=== PATIENT | male | born 1940 | race Caucasian/White ===

== ENCOUNTER 2018-02-11 10:11 | Inpatient (IN) | payer MEDICARE, BC ==
[~2018-02-11] VITALS: Ht 180.3 cm; Wt 84.0 kg
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
--- NOTE | ~2018-02-11 | PN ---
PATIENT:RIKKI SUTTON MEDICAL RECORD: [id number] LOCATION:DIP[facility]113 ADMISSION DATE: 02/11/18 PROGRESS NOTE DATE OF SERVICE: 03/03/2018 SUBJECTIVE: The patient's case was discussed with staff. He has no new complaint. OBJECTIVE: The patient is in good behavioral control with limited insight about his condition. He does tolerate his medicines well. ASSESSMENT: No change in diagnoses. PLAN: The patient will be transitioned out of the hospital today. His long-term prognosis is guarded. Supportive and educational interventions were made. TRANSINT:[id number] Voice Confirmation ID: [id number] DOCUMENT ID: [id number] TAMIKO VALENZUELA MD at 1012 CC: [id number] DICTATION DATE: 03/03/18 1350 CLASSROOM TECHNOLOGY COACH: 03/03/18 1506 DIS IN 03/03/18 [place] [address] [place] [address]
--- NOTE | ~2018-02-11 | PN ---
PATIENT:RIKKI SUTTON MEDICAL RECORD: [id number] LOCATION:[facility]113 ADMISSION DATE: 02/11/18 PROGRESS NOTE DATE OF SERVICE: 02/13/2018 SUBJECTIVE: The patient's case was discussed with staff. He has no new complaint. OBJECTIVE: The patient is eating and sleeping reasonably well. He is severely impaired cognitively, but appears to be settling into a routine and is interacting with staff and other patients and is not asking to go home to be with his . He clearly is going to respond very nicely to structure, routine, and environment and is not going to require a great deal of medication to assist with that adaptation or I could say at least so far he has not. ASSESSMENT: No change in diagnoses. PLAN: The patient will be maintained on current medicines. Brief supportive and educational interventions were made. [facility] prognosis is guarded. TRANSINT:[id number] Voice Confirmation ID: [id number] DOCUMENT ID: [id number] TAMIKO VALENZUELA MD at 1417 CC: [id number] DICTATION DATE: 02/13/18 1048 SHOPPER'S AIDE: 02/13/18 1222 ADM IN [place] [address] [place] [address]
--- NOTE | ~2018-02-11 | DS ---
PATIENT:RIKKI SUTTON :38 MEDICAL RECORD: [id number] DISCHARGE SUMMARY ADMISSION DATE: 02/11/18 DISCHARGE DATE: 03/03/18 IDENTIFYING DATA: The patient is 77 years old and he was admitted to the hospital on a voluntary basis. The patient had been brought to the Emergency Room by his son. The patient's primary care doctor is Dr. Conti. Dr. Conti felt that the patient was not in a safe situation and was concerned about the patient's agitation. The patient has been confused and was showing signs of dementia along with increasing signs of agitation towards others and in particular his . The patient denied all of this and felt that it was some sort of big misunderstanding and was really quite confused about what was going on. The patient had recently been tested by Dr. Nataly Jeffrey and had scored in the severe range of cognitive impairment and this finding was consistent with my bedside exam. HOSPITAL COURSE: The patient was admitted to the hospital and treated with both mood stabilizing and memory enhancing medications. He showed significant improvement in his behaviors and level of agitation, but obviously no real change in his underlying level of impairment cognitively. He subsequently was transitioned to a long-term care setting and was discharged out of the hospital. DISCHARGE DIAGNOSES: AXIS I: Senile dementia of the Alzheimer's type with behavioral disturbances. AXIS II: None. AXIS III: None. AXIS IV: Moderate stressors. AXIS V: Global assessment of functioning is 35. PLAN: At the time of discharge, the patient was in good behavioral control with limited insight about his condition. He was tolerating his medications well. His long-term prognosis is guarded. Brief supportive and educational interventions were made. TRANSINT:[id number] Voice Confirmation ID: [id number] DOCUMENT ID: [id number] TAMIKO VALENZUELA MD at 1354 CC: [id number] DICTATION DATE: 03/10/181707 GENERAL FARMER: 03/10/181718 DIS IN 03/03/18 [place] [id number]
--- NOTE | ~2018-02-11 | PN ---
PATIENT:RIKKI SUTTON MEDICAL RECORD: [id number] LOCATION:[facility] ADMISSION DATE: 02/11/18 PROGRESS NOTE DATE OF SERVICE: 02/15/2018 SUBJECTIVE: The patient's case was discussed with staff. He has no new complaint. OBJECTIVE: The patient is in good behavioral control with limited insight about his condition. He does tolerate his medicines well. ASSESSMENT: No change in diagnoses. PLAN: The patient is severely impaired cognitively, but has not been agitated in any serious way. I think he is appropriate to be transitioned out of the hospital soon if this level of improvement is maintained. TRANSINT:[id number] Voice Confirmation ID: [id number] DOCUMENT ID: [id number] TAMIKO VALENZUELA MD at 1456 CC: [id number] DICTATION DATE: 02/15/18 1446 FIBREGLASS GUN HAND: 02/15/18 1510 ADM IN [place] [id number] [place] [address]
--- NOTE | ~2018-02-11 | PN ---
PATIENT:RIKKI SUTTON MEDICAL RECORD: [id number] LOCATION:[facility] ADMISSION DATE: 02/11/18 PROGRESS NOTE DATE OF SERVICE: 02/17/2018 SUBJECTIVE: The patient's case was discussed with staff. He has no new complaint. OBJECTIVE: The patient is in good behavioral control with limited insight about his condition. He has not been aggressive. ASSESSMENT: No change in diagnoses. PLAN: I anticipate the patient can be transitioned out of the hospital soon. As already documented, I think that the particular assisted living center he is going to is not secure enough to meet his needs, but it certainly does not rise to the level of making any kind of actionable report on. TRANSINT:[id number] Voice Confirmation ID: [id number] DOCUMENT ID: [id number] TAMIKO VALENZUELA MD at 1224 CC: [id number] DICTATION DATE: 02/17/18 1050 PAI GOW MANAGER: 02/17/18 1210 ADM IN [place] [address] [place] [address]
--- NOTE | ~2018-02-11 | PN ---
PATIENT:RIKKI SUTTON MEDICAL RECORD: [id number] LOCATION:[facility] ADMISSION DATE: 02/11/18 PROGRESS NOTE DATE OF SERVICE: 03/01/2018 SUBJECTIVE: The patient's case was discussed with staff. He has no new complaint. OBJECTIVE: The patient is in good behavioral control with limited insight about his condition. He generally tolerates his medicines well. ASSESSMENT: No change in diagnoses. PLAN: Current medicines have been reviewed and will be maintained. Long-term prognosis is guarded. I anticipate he can be transitioned out of the hospital as soon as appropriate placement can be arranged. TRANSINT:[id number] Voice Confirmation ID: [id number] DOCUMENT ID: [id number] TAMIKO VALENZUELA MD at 1501 CC: [id number] DICTATION DATE: 03/01/18 1630 VICTIMS ADVOCATE CLERK/SPECIALIST: 03/01/18 1852 ADM IN [facility] [address] [place] [address]
--- NOTE | ~2018-02-11 | PN ---
PATIENT:RIKKI SUTTON MEDICAL RECORD: [id number] LOCATION:[facility]113 ADMISSION DATE: 02/11/18 PROGRESS NOTE DATE OF SERVICE: 03/02/2018 SUBJECTIVE: The patient's case was discussed with staff. He has no new complaint. OBJECTIVE: The patient denies intent to harm himself or others. He generally tolerates his medicines well. Eye contact is fair. ASSESSMENT: No change in diagnoses. PLAN: Brief supportive and educational interventions were made. [facility] prognosis is guarded. I anticipate he can be transitioned out of the hospital tomorrow if this level of improvement is maintained. Followup will be with his primary care physician. TRANSINT:[id number] Voice Confirmation ID: [id number] DOCUMENT ID: [id number] TAMIKO VALENZUELA MD at 1319 CC: [id number] DICTATION DATE: 03/02/18 1518 HISTOLOGY AIDE: 03/02/18 1555 ADM IN [place] [id number] [place] [address]
--- NOTE | ~2018-02-11 | PN ---
PATIENT:RIKKI SUTTON MEDICAL RECORD: [id number] LOCATION:[facility] ADMISSION DATE: 02/11/18 PROGRESS NOTE DATE OF SERVICE: 02/18/2018 SUBJECTIVE: The patient's case was discussed with staff. He has no new complaint. OBJECTIVE: The patient denies intent to harm himself or others. He generally tolerates his medicines well. Eye contact is fair. ASSESSMENT: No change in diagnoses. PLAN: Supportive and educational interventions were made. Long-term prognosis is guarded. I anticipate the patient can be transitioned out of the hospital soon if this level of improvement is maintained. His family is planning to move him into [facility]. I have increased the dose of his Aricept to 10 mg at bedtime since he has tolerated the initial use of the medicine well. TRANSINT:[id number] Voice Confirmation ID: [id number] DOCUMENT ID: [id number] TAMIKO VALENZUELA MD at 1212 CC: [id number] DICTATION DATE: 02/18/18 1303 MICROSTRATEGY ARCHITECT: 02/18/18 1321 ADM IN [facility] [address] [place] [address]
--- NOTE | ~2018-02-11 | PN ---
PATIENT:RIKKI SUTTON MEDICAL RECORD: [id number] LOCATION:DPIAK [facility]113 ADMISSION DATE: 02/11/18 PROGRESS NOTE DATE OF SERVICE: 02/22/2018 SUBJECTIVE: The patient's case was discussed with staff. He has no new complaint. OBJECTIVE: The patient denies intent to harm himself or others. He tolerates his medicines well. He is eating reasonably well. ASSESSMENT: No change in diagnoses. PLAN: Supportive and educational interventions were made. Skilled Nursing prognosis is guarded. TRANSINT:[id number] Voice Confirmation ID: [id number] DOCUMENT ID: [id number] TAMIKO VALENZUELA MD at 1452 CC: [id number] DICTATION DATE: 02/22/18 1508 X RAY CONSULTANT: 02/22/18 1537 ADM IN [place] [id number] [place] [address]
--- NOTE | ~2018-02-11 | PN ---
PATIENT:RIKKI SUTTON MEDICAL RECORD: [id number] LOCATION:[facility] ADMISSION DATE: 02/11/18 PROGRESS NOTE DATE OF SERVICE: 02/20/2018 SUBJECTIVE: The patient's case was discussed with staff. He has no new complaint. OBJECTIVE: The patient is in good behavioral control with limited insight about his condition. He tolerates his medicines well. ASSESSMENT: No change in diagnoses. PLAN: The patient has shown significant improvement. I anticipate he can be transitioned out of the hospital soon. TRANSINT:[id number] Voice Confirmation ID: [id number] DOCUMENT ID: [id number] TAMIKO VALENZUELA MD at 1445 CC: [id number] DICTATION DATE: 02/20/18 1006 OTOLARYNGOLOGY REP: 02/20/18 1202 ADM IN [place] [address] [place] [address]
--- NOTE | ~2018-02-11 | PN ---
PATIENT:RIKKI SUTTON MEDICAL RECORD: [id number] LOCATION:TonyJEN [facility]u113 ADMISSION DATE: 02/11/18 PROGRESS NOTE DATE OF SERVICE: 02/19/2018 SUBJECTIVE: The patient's case was discussed with staff. He has no new complaint. OBJECTIVE: The patient denies intent to harm himself or others. He does tolerate his medicines well. ASSESSMENT: No change in diagnoses. PLAN: The patient will be transitioned out of the hospital soon. He is going to live at [facility] with his 92-year-old . His long-term prognosis is guarded. TRANSINT:[id number] Voice Confirmation ID: [id number] DOCUMENT ID: [id number] TAMIKO VALENZUELA MD at 0949 CC: [id number] DICTATION DATE: 02/19/18 1238 ACID PUMPER: 02/19/18 1247 ADM IN [facility] [address] [place] [address]
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
--- NOTE | ~2018-02-11 | PN ---
PATIENT:RIKKI SUTTON MEDICAL RECORD: [id number] LOCATION:DIP[facility] ADMISSION DATE: 02/11/18 PROGRESS NOTE DATE OF SERVICE: 02/24/2018 SUBJECTIVE: The patient's case was discussed with staff. He has no new complaint. OBJECTIVE: The patient is in good behavioral control with limited insight about his condition. He tolerates his medicines well. ASSESSMENT: No change in diagnoses. PLAN: The patient is in need of 47-zhdq-g-day supervision. His long-term prognosis is guarded. TRANSINT:[id number] Voice Confirmation ID: [id number] DOCUMENT ID: [id number] TAMIKO VALENZUELA MD at 1438 CC: [id number] DICTATION DATE: 02/24/18 1406 STAKE DRIVER: 02/24/18 1425 ADM IN [place] [address] [place] [address]
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
[2018-02-11 10:48] LABS: BASOPHILS 0.9 % (0-2); EOSINOPHILS 1.8 % (0-7); HEMATOCRIT 42.2 % (42.0-54.0); HEMOGLOBIN 14.2 g/dL (13.5-17.5); IMMATURE GRANULOCYTES 0.3 % (0-5); LYMPHOCYTES 20.6 % (15-50); MCHC 33.6 g/dL (31.0-37.0); MEAN PLATELET VOLUME 9.9 fL (7.4-10.4); MONOCYTES 7.2 % (2-11); NEUTROPHILS 69.2 % (40-80); PLATELET COUNT 162 10x3/uL (130-400); RBC 4.44 10x6/uL (4.20-6.10); RDW 13.6 % (11.5-14.5); WBC 6.6 10x3/uL (4.8-10.8)
[2018-02-11 11:06] LABS: ALBUMIN 3.3 g/dL (3.4-5.0); ANION GAP 13.6 mmol/L (8-16); BILIRUBIN - TOTAL 0.54 mg/dL (0.2-1.3); CARBON DIOXIDE 25.6 mmol/L (21.0-32.0); CREATININE - SERUM 1.3 mg/dL (0.6-1.3); MAGNESIUM - SERUM 2.1 mg/dL (1.8-2.4); POTASSIUM - SERUM 4.2 mmol/L (3.5-5.1); PROTEIN - SERUM 6.8 g/dL (6.4-8.2)
[2018-02-11 11:35] LABS: UDS - AMPHET NEGATIVE QUAL (NEGATIVE); UDS - BARB NEGATIVE QUAL (NEGATIVE); UDS - BENZO NEGATIVE QUAL (NEGATIVE); UDS - COCAINE NEGATIVE QUAL (NEGATIVE); UDS - OPIATE NEGATIVE QUAL (NEGATIVE); UDS - PCP NEGATIVE QUAL (NEGATIVE); UDS - THC NEGATIVE QUAL (NEGATIVE)
[2018-02-11 11:48] LABS: APPEARANCE CLEAR (CLEAR); BILIRUBIN NEGATIVE (NEGATIVE); COLOR YELLOW (YELLOW); GLUCOSE NEGATIVE (NEGATIVE); KETONE NEGATIVE (NEGATIVE); NITRITE NEGATIVE (NEGATIVE); PROTEIN NEGATIVE (NEGATIVE); SPECIFIC GRAVITY 1.025 (1.005-1.020); UROBILINOGEN NORMAL (NORMAL)
[2018-02-11 11:50] LABS: BACTERIA FEW /hpf (NONE SEEN); EPITHELIAL CELLS OCC /hpf (0-5); MUCUS >1+ /lpf (NONE SEEN); RED CELLS - URINE 0-5 /hpf (0-5); WHITE CELLS - URINE OCC /hpf (0-5)
[2018-02-11 11:51] LABS: HYALINE CAST 0-5 /lpf (NONE SEEN)
[2018-02-11 12:49] VITALS: BP 176/80; BMI 25.8
[2018-02-11 14:13] VITALS: BMI 25.8
[2018-02-11 15:32] LABS: CHOL - HDL RATIO 3.1 ratio (2.3-4.9); LDL-HDL RATIO 1.9 ratio (1.5-3.5); THYROID STIMULATING HORMONE 1.46 uIU/mL (0.36-3.74)
[2018-02-11 20:07] VITALS: BP 150/71
[2018-02-12 06:15] LABS: RAPID PLASMA REAGIN Non Reactive (Non Reactive); VITAMIN D 25 HYDROXY 12.9 ng/mL (30.0-100.0)
[2018-02-12 08:19] LABS: FOLATE (FOLIC ACID) - SERUM 11.9 ng/mL (>3.0)
[2018-02-12 09:18] VITALS: BP 134/61
[2018-02-12 09:38] VITALS: BP 134/61
[2018-02-12 14:16] VITALS: Ht 180.3 cm; Wt 84.0 kg
[2018-02-12 19:43] VITALS: BP 178/71
[2018-02-13 10:42] VITALS: BP 141/78
[2018-02-13 20:16] VITALS: BP 140/70
[2018-02-14 08:27] VITALS: BP 151/80
[2018-02-14 19:26] VITALS: BP 151/61
[2018-02-15 07:00] VITALS: BP 121/66
[2018-02-15 19:56] VITALS: BP 134/73
[2018-02-16 07:56] VITALS: BP 138/58
[2018-02-16 19:55] VITALS: BP 144/69
[2018-02-17 09:28] VITALS: BP 135/83
[2018-02-17 19:33] VITALS: BP 117/60
[2018-02-18 08:30] VITALS: BP 145/73
[2018-02-18 21:13] VITALS: BP 113/63
[2018-02-19 08:30] VITALS: BP 141/99
[2018-02-19 20:02] VITALS: BP 142/71
[2018-02-20 08:16] VITALS: BP 140/65
[2018-02-20 10:19] VITALS: BP 140/65
[2018-02-20 19:58] VITALS: BP 143/61
[2018-02-21 07:00] VITALS: BP 143/56
[2018-02-21 20:26] VITALS: BP 138/65
[2018-02-22 07:00] VITALS: BP 147/60
[2018-02-22 19:58] VITALS: BP 151/66
[2018-02-23 10:03] VITALS: BP 122/67
[2018-02-24 00:11] VITALS: BP 128/62
[2018-02-24 08:00] VITALS: BP 108/65
[2018-02-24 20:00] VITALS: BP 122/74
[2018-02-25 09:39] VITALS: BP 138/73
[2018-02-25 22:05] VITALS: BP 124/63
[2018-02-26 10:47] VITALS: BP 140/70
[2018-02-26 21:09] VITALS: BP 110/59
[2018-02-27 11:14] VITALS: BP 138/62
[2018-02-27 19:32] VITALS: BP 125/57
[2018-02-28 07:00] VITALS: BP 111/71
[2018-02-28 19:20] VITALS: BP 140/77
[2018-03-01 07:00] VITALS: BP 124/71
[2018-03-01 20:58] VITALS: BP 108/43
[2018-03-02 10:25] VITALS: BP 129/64
[2018-03-02] MEDS ORDERED: ARICEPT10 MG PO (15:16)
[2018-03-02] MEDS ORDERED: VITAMIN D5000 UNIT PO (15:17)
[2018-03-02] MEDS ORDERED: VITAMIN B-121000 MCG PO (15:17)
[2018-03-02 19:36] VITALS: BP 123/59
[2018-03-03 10:56] VITALS: BP 118/71
== END 2018-03-03 14:39 | disposition home or self-care (01) | DRG 57 ==
LOC: D.ER 10:11 → D.PSYCH 12:15
PROVIDERS: Family Medicine; Psychiatry & Neurology Psychiatry
DX: G30.1 Alzheimer's disease with late onset (principal); F02.81 Dementia in other diseases classified elsewhere, unspecified severity, with behavioral disturbance; E53.8 Deficiency of other specified B group vitamins; E55.9 Vitamin D deficiency, unspecified

== ENCOUNTER 2018-05-10 15:39 | Inpatient (IN) | payer MEDICARE, BC ==
[~2018-05-10] VITALS: Ht 180.3 cm; Wt 81.6 kg
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
--- NOTE | ~2018-05-10 | PN ---
PATIENT:RIKKI SUTTON MEDICAL RECORD: [id number] LOCATION:DIPAK Leone112 ADMISSION DATE: 05/10/18 PROGRESS NOTE DATE OF SERVICE: 05/18/2018 SUBJECTIVE: The patient's case was discussed with staff. He has no new complaint. OBJECTIVE: The patient denies intent to harm himself or others. He generally tolerates his medicines well. Eye contact is poor. ASSESSMENT: No change in diagnoses. PLAN: The patient has no evidence of acute or direct dangerousness. He will be transitioned out of the hospital today. His long-term prognosis is guarded. Follow up will be with his primary care alf physician. TRANSINT:[id number] Voice Confirmation ID: [id number] DOCUMENT ID: [id number] TAMIKO VALENZUELA MD at 1419 CC: [id number] DICTATION DATE: 05/18/18 1437 LEGAL BILLING CLERK: 05/18/18 1546 DIS IN 05/18/18 [place] [address] [place] [address]
--- NOTE | ~2018-05-10 | PN ---
PATIENT:RIKKI SUTTON MEDICAL RECORD: [id number] LOCATION:DIPAK [address]112 ADMISSION DATE: 05/10/18 PROGRESS NOTE DATE OF SERVICE: 05/14/2018 SUBJECTIVE: The patient's case was discussed with staff. He has no new complaint. OBJECTIVE: The patient is in good behavioral control. He has limited insight about his condition. He does tolerate his medicines well. ASSESSMENT: No change in diagnoses. PLAN: Brief supportive and educational interventions were made. I have reviewed the patient's medications and will maintain them as they are. I would anticipate he can be transitioned out of the hospital soon if this level of improvement is maintained. TRANSINT:[id number] Voice Confirmation ID: [id number] DOCUMENT ID: [id number] TAMIKO VALENZUELA MD at 1234 CC: [id number] DICTATION DATE: 05/14/181421 OPTOMETRIST: 05/14/18 1426 ADM IN [facility] [address] [place] [address]
--- NOTE | ~2018-05-10 | PN ---
PATIENT:RIKKI SUTTON MEDICAL RECORD: [id number] LOCATION:[facility] [address] ADMISSION DATE: 05/10/18 PROGRESS NOTE DATE OF SERVICE: 05/12/2018 SUBJECTIVE: The patient's case was discussed with staff. He has no new complaint. OBJECTIVE: The patient denies intent to harm himself or others. He generally tolerates his medicines well. ASSESSMENT: No change in diagnoses. PLAN: Supportive and educational interventions were made. The patient's long-term prognosis is guarded. He has not been aggressive and has no recollection of his previous behaviors. TRANSINT:[id number] Voice Confirmation ID: [id number] DOCUMENT ID: [id number] TAMIKO VALENZUELA MD at 1407 CC: [id number] DICTATION DATE: 05/12/18 1505 HORTICULTURAL AGENT: 05/12/18 1513 ADM IN [place] [id number] [place] [id number]
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
--- NOTE | ~2018-05-10 | PN ---
PATIENT:RIKKI SUTTON MEDICAL RECORD: [id number] LOCATION:[facility] [place] ADMISSION DATE: 05/10/18 PROGRESS NOTE DATE OF SERVICE: 05/16/2018 SUBJECTIVE: The patient's case was discussed with staff. He has no new complaint. OBJECTIVE: The patient denies intent to harm himself or others. He is quite confused, but currently is not showing any aggression. ASSESSMENT: No change in diagnoses. PLAN: Supportive and educational interventions were made. Long-term prognosis is guarded. TRANSINT:[id number] Voice Confirmation ID: [id number] DOCUMENT ID: [id number] TAMIKO VALENZUELA MD at 1351 CC: [id number] DICTATION DATE: 05/16/18 1245 SOCIAL STAFF WORKER: 05/16/181951 ADM IN [place] [address] [place] [address]
--- NOTE | ~2018-05-10 | PN ---
PATIENT:RIKKI SUTTON MEDICAL RECORD: [id number] LOCATION:[facility] [place] ADMISSION DATE: 05/10/18 PROGRESS NOTE DATE OF SERVICE: 05/13/2018 SUBJECTIVE: The patient's case was discussed with staff. He has no new complaint. OBJECTIVE: The patient is in good behavioral control with limited insight about his condition. He tolerates his medicines well. He has not been aggressive today. ASSESSMENT: No change in diagnoses. PLAN: The patient's current medications have been reviewed. They will be maintained. Supportive and educational interventions were made. TRANSINT:[id number] Voice Confirmation ID: [id number] DOCUMENT ID: [id number] TAMIKO VALENZUELA MD at 1341 CC: [id number] DICTATION DATE: 05/13/18 1452 SUBSTATION DESIGNER: 05/13/18 1501 ADM IN [place] [id number] [place] [address]
--- NOTE | ~2018-05-10 | PN ---
PATIENT:RIKKI SUTTON MEDICAL RECORD: [id number] LOCATION:[facility] [place] ADMISSION DATE: 05/10/18 PROGRESS NOTE DATE OF SERVICE: 05/15/2018 SUBJECTIVE: The patient's case was discussed with staff. He has no new complaint. OBJECTIVE: The patient denies intent to harm himself or others. He generally tolerates his medicines well. He is severely confused. ASSESSMENT: No change in diagnoses. PLAN: Brief supportive and educational interventions were made. Long-term prognosis is guarded. TRANSINT:[id number] Voice Confirmation ID: [id number] DOCUMENT ID: [id number] TAMIKO VALENZUELA MD at 1226 CC: [id number] DICTATION DATE: 05/15/18 1244 WOOD CRAFTER: 05/15/18 1248 ADM IN [place] [address] [place] [address]
--- NOTE | ~2018-05-10 | PN ---
PATIENT:RIKKI SUTTON MEDICAL RECORD: [id number] LOCATION:[facility] [address] ADMISSION DATE: 05/10/18 PROGRESS NOTE DATE OF SERVICE: 05/17/2018 SUBJECTIVE: The patient's case was discussed with staff. He has no new complaint. OBJECTIVE: The patient is in good behavioral control with limited insight about his condition. He does tolerate his medicines well. ASSESSMENT: No change in diagnoses. PLAN: Supportive and educational interventions were made. The patient's long-term prognosis is guarded. He has significantly improved and I anticipate he can be returned to the longterm tomorrow. TRANSINT:[id number] Voice Confirmation ID: [id number] DOCUMENT ID: [id number] TAMIKO VALENZUELA MD at 1416 CC: [id number] DICTATION DATE: 05/17/18 1601 WEIGHTS AND MEASURES SEALER: 05/17/18 1640 ADM IN [facility] [address] [place] [id number]
[~2018-05-10 15:39] MED LIST: ARICEPT10 MG PO; VITAMIN B-121000 MCG PO; VITAMIN D5000 UNIT PO
[2018-05-10] MEDS ORDERED: KLONOPIN0.5 MG PO (15:42)
[2018-05-10] MEDS ORDERED: SEROQUEL25 MG PO (15:43)
[2018-05-10 16:44] LABS: BASOPHILS 1.1 % (0-2); EOSINOPHILS 5.7 % (0-7); HEMATOCRIT 44.9 % (42.0-54.0); HEMOGLOBIN 15.2 g/dL (13.5-17.5); IMMATURE GRANULOCYTES 0.5 % (0-5); LYMPHOCYTES 22.2 % (15-50); MCH 32.1 pg (26.0-34.0); MCHC 33.9 g/dL (31.0-37.0); MCV 94.7 fL (80.0-100.0); MEAN PLATELET VOLUME 9.9 fL (7.4-10.4); MONOCYTES 13.6 % (2-11); NEUTROPHILS 56.9 % (40-80); PLATELET COUNT 178 10x3/uL (130-400); RBC 4.74 10x6/uL (4.20-6.10); RDW 13.5 % (11.5-14.5); WBC 7.6 10x3/uL (4.8-10.8)
[2018-05-10 17:01] LABS: APPEARANCE CLEAR (CLEAR); BILIRUBIN NEGATIVE (NEGATIVE); COLOR YELLOW (YELLOW); GLUCOSE NEGATIVE (NEGATIVE); KETONE NEGATIVE (NEGATIVE); NITRITE NEGATIVE (NEGATIVE); PROTEIN NEGATIVE (NEGATIVE); SPECIFIC GRAVITY 1.015 (1.005-1.020); UROBILINOGEN NORMAL (NORMAL)
[2018-05-10 17:41] LABS: ALBUMIN 3.5 g/dL (3.4-5.0); ANION GAP 10.7 mmol/L (8-16); BILIRUBIN - TOTAL 0.33 mg/dL (0.2-1.3); CALCIUM 9.1 mg/dL (8.5-10.1); CARBON DIOXIDE 29.9 mmol/L (21.0-32.0); CHOL - HDL RATIO 3.2 ratio (2.3-4.9); CREATININE - SERUM 1.4 mg/dL (0.6-1.3); LDL-HDL RATIO 1.9 ratio (1.5-3.5); POTASSIUM - SERUM 4.6 mmol/L (3.5-5.1); PROTEIN - SERUM 7.4 g/dL (6.4-8.2); THYROID STIMULATING HORMONE 2.12 uIU/mL (0.36-3.74)
[2018-05-11 02:08] VITALS: BP 112/54
[2018-05-11 06:58] LABS: CHOL - HDL RATIO 2.8 ratio (2.3-4.9); LDL-HDL RATIO 1.6 ratio (1.5-3.5); THYROID STIMULATING HORMONE 1.81 uIU/mL (0.36-3.74)
[2018-05-11 08:00] VITALS: BP 124/83
[2018-05-11 08:07] VITALS: BMI 23.7; BMI 25.2
[2018-05-11 14:06] VITALS: Ht 180.3 cm; Wt 81.6 kg
[2018-05-11 20:46] VITALS: BP 135/72
[2018-05-12 07:53] LABS: RAPID PLASMA REAGIN Non Reactive (Non Reactive)
[2018-05-12 08:19] LABS: FOLATE (FOLIC ACID) - SERUM 10.5 ng/mL (>3.0)
[2018-05-12 09:16] LABS: VITAMIN D 25 HYDROXY 63.2 ng/mL (30.0-100.0)
[2018-05-12 10:28] VITALS: BP 159/89
[2018-05-12 20:27] VITALS: BP 157/87
[2018-05-13 10:09] VITALS: BP 167/90
[2018-05-13 19:38] VITALS: BP 147/84
[2018-05-14 10:41] VITALS: BP 152/85
[2018-05-15 10:15] VITALS: BP 131/68
[2018-05-15 20:00] VITALS: BP 116/52
[2018-05-16 11:02] VITALS: BP 108/74
[2018-05-16 19:47] VITALS: BP 128/63
[2018-05-17 07:00] VITALS: BP 131/75
[2018-05-17] MEDS ORDERED: Aricept PO (16:02)
[2018-05-17] MEDS ORDERED: VITAMIN D5000 UNIT PO (16:03)
[2018-05-17 19:50] VITALS: BP 135/72
[2018-05-18 10:00] VITALS: BP 123/72
== END 2018-05-18 15:45 | disposition home or self-care (01) | DRG 57 ==
LOC: D.ER 15:39 → D.EDHOLD 16:46 → D.PSYCH 16:46
PROVIDERS: Emergency Medicine; Psychiatry & Neurology Psychiatry
DX: G30.1 Alzheimer's disease with late onset (principal); F02.81 Dementia in other diseases classified elsewhere, unspecified severity, with behavioral disturbance; F41.9 Anxiety disorder, unspecified; E53.8 Deficiency of other specified B group vitamins; E55.9 Vitamin D deficiency, unspecified; Z87.891 Personal history of nicotine dependence

== ENCOUNTER 2018-07-21 18:05 | Inpatient (IN) | payer MEDICARE, BC ==
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
--- NOTE | ~2018-07-21 | PN ---
PATIENT:RIKKI SUTTON MEDICAL RECORD: [id number] LOCATION:[facility] [address] ADMISSION DATE: 07/21/18 PROGRESS NOTE DATE OF SERVICE: 08/01/2018 SUBJECTIVE: The patient's case was discussed with staff. He has no new complaint. OBJECTIVE: The patient denies intent to harm himself or others. He generally tolerates his medicines well. He has pretty limited insight about his situation, but he has been in good behavioral control and is quite calm. ASSESSMENT: No change in diagnoses. PLAN: Current medicines have been reviewed and will be maintained. His long-term prognosis is guarded. I anticipate if this level of improvement continues he can be transitioned out of the hospital tomorrow. Although the current medicines will be maintained, I see no reason for him to continue to take this low dose of Klonopin and feel that he will be calm enough to not represent any kind of a problem without the quarter of a mg twice a day that he is currently receiving. TRANSINT:[id number] Voice Confirmation ID: [id number] DOCUMENT ID: [id number] TAMIKO VALENZUELA MD at 1353 CC: [id number] DICTATION DATE: 08/01/18 1132 GROOMING SALON MANAGER: 08/01/18 1151 ADM IN [facility] [address] [place] [address]
--- NOTE | ~2018-07-21 | PN ---
PATIENT:RIKKI SUTTON MEDICAL RECORD: [id number] LOCATION:[facility] [place] ADMISSION DATE: 07/21/18 PROGRESS NOTE DATE OF SERVICE: 08/05/2018 SUBJECTIVE: The patient's case was discussed with staff. He has no new complaint. OBJECTIVE: The patient denies intent to harm himself or others. He generally tolerates his medicines well. He has not been aggressive, and he is sleeping and eating reasonably well. ASSESSMENT: No change in diagnoses. PLAN: The [facility] has decided they cannot manage him. He will be referred to the [facility] for assisted living. TRANSINT:[id number] Voice Confirmation ID: [id number] DOCUMENT ID: [id number] TAMIKO VALENZUELA MD at 1255 CC: [id number] DICTATION DATE: 08/05/18 1235 BRIDGE CREW MEMBER: 08/05/18 1355 ADM IN [facility] [address] [place] [address]
--- NOTE | ~2018-07-21 | PN ---
PATIENT:RIKKI SUTTON MEDICAL RECORD: [id number] LOCATION:[facility] [address] ADMISSION DATE: 07/21/18 PROGRESS NOTE DATE OF SERVICE: 08/09/2018 SUBJECTIVE: The patient's case was discussed with staff. He has no new complaint. OBJECTIVE: The patient denies intent to harm himself or others. He does tolerate his medicines well. He is severely impaired cognitively, but there are no behavior problems. He is going to be transitioned out of the hospital into the [facility] with his today. TRANSINT:[id number] Voice Confirmation ID: [id number] DOCUMENT ID: [id number] TAMIKO VALENZUELA MD at 0943 CC: [id number] DICTATION DATE: 08/09/18 1029 STAGE SETTING PAINTER APPRENTICE: 08/09/18 1050 DIS IN 08/09/18 [place] [address] [place] [address]
--- NOTE | ~2018-07-21 | PN ---
PATIENT:RIKKI SUTTON MEDICAL RECORD: [id number] LOCATION:[facility] [address] ADMISSION DATE: 07/21/18 PROGRESS NOTE DATE OF SERVICE: 07/23/2018 SUBJECTIVE: The patient's case was discussed with staff. He has no new complaint. OBJECTIVE: The patient is in good behavioral control with little or limited insight about his situation. ASSESSMENT: No change in diagnoses. PLAN: Current medicines and therapies have been reviewed. I am going to discontinue the Seroquel. I am concerned that the Seroquel may be making him unsteady on his feet. If I think an antipsychotic medication is needed, I will either use Seroquel or some other equivalent medication, but at night time. I would like to see if his gait is any better with the discontinuation of this medication. TRANSINT:[id number] Voice Confirmation ID: [id number] DOCUMENT ID: [id number] TAMIKO VALENZUELA MD at 1101 CC: [id number] DICTATION DATE: 07/23/18 1436 COIN COLLECTOR: 07/23/18 2100 ADM IN [facility] [address] [place] [address]
--- NOTE | ~2018-07-21 | PN ---
PATIENT:RIKKI SUTTON MEDICAL RECORD: [id number] LOCATION:[facility] [place] ADMISSION DATE: 07/21/18 PROGRESS NOTE DATE OF SERVICE: 08/02/2018 SUBJECTIVE: The patient's case was discussed with staff. He has no new complaint. OBJECTIVE: The patient is in good behavioral control with limited insight about his condition. He generally tolerates his medicines well. He is often difficult to redirect, but is not openly aggressive or hostile. ASSESSMENT: No change in diagnoses. PLAN: The patient will be transitioned back to the intermediate today. Followup will be with his primary care physician. TRANSINT:[id number] Voice Confirmation ID: [id number] DOCUMENT ID: [id number] TAMIKO VALENZUELA MD at 0945 CC: [id number] DICTATION DATE: 08/02/18 1357 LICENSED PHYSICAL THERAPY ASSISTANT: 08/02/18 1437 ADM IN [place] [address] [place] [address]
--- NOTE | ~2018-07-21 | PN ---
PATIENT:RIKKI SUTTON MEDICAL RECORD: [id number] LOCATION:[facility] [place] ADMISSION DATE: 07/21/18 PROGRESS NOTE DATE OF SERVICE: 07/28/2018 SUBJECTIVE: The patient's case was discussed with staff. He has no new complaint. OBJECTIVE: The patient is confused and poorly oriented, but he has not been aggressive. ASSESSMENT: No change in diagnoses. PLAN: The patient was given a slightly lower dose of Klonopin yesterday. I do not see that it has had any significant effect on his behavior so far. His prognosis is guarded. He is taking a reasonable dose of Aricept. TRANSINT:[id number] Voice Confirmation ID: [id number] DOCUMENT ID: [id number] TAMIKO VALENZUELA MD at 0858 CC: [id number] DICTATION DATE: 07/28/18 1134 LOG YARD DERRICK OPERATOR: 07/28/18 1303 ADM IN [place] [id number] [place] [id number]
--- NOTE | ~2018-07-21 | PN ---
PATIENT:RIKKI SUTTON MEDICAL RECORD: [id number] LOCATION:[facility] [place] ADMISSION DATE: 07/21/18 PROGRESS NOTE DATE OF SERVICE: 07/26/2018 SUBJECTIVE: The patient's case was discussed with staff. He has no new complaint. OBJECTIVE: The patient is disorganized with limited insight about his condition. He generally tolerates his medicines reasonably well. He is eating well, but has this delusion that one of the other patients is his . He keeps calling her by his 's name and wants to embrace her and becomes angry when he is prevented from doing so. ASSESSMENT: No change in diagnoses. PLAN: The patient will be given a low dose of an antipsychotic medication, Trilafon, to assist with his thought disorganization. His long-term prognosis is guarded. Both supportive and educational interventions were made. TRANSINT:[id number] Voice Confirmation ID: [id number] DOCUMENT ID: [id number] TAMIKO VALENZUELA MD at 1443 CC: [id number] DICTATION DATE: 07/26/18 1604 RAPIER INSERTION LOOM FIXER: 07/26/18 1826 ADM IN [place] [address] [place] [address]
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
--- NOTE | ~2018-07-21 | PN ---
PATIENT:RIKKI SUTTON MEDICAL RECORD: [id number] LOCATION:[facility] [address] ADMISSION DATE: 07/21/18 PROGRESS NOTE DATE OF SERVICE: 07/29/2018 SUBJECTIVE: The patient's case was discussed with staff. He has no new complaint. OBJECTIVE: The patient denies intent to harm himself or others. He has been relatively calm. ASSESSMENT: No change in diagnoses. PLAN: The patient's Klonopin is going to be tapered slightly. I think his long-term prognosis is guarded. Both supportive and educational interventions were made. TRANSINT:[id number] Voice Confirmation ID: [id number] DOCUMENT ID: [id number] TAMIKO VALENZUELA MD at 1217 CC: [id number] DICTATION DATE: 07/29/18 1135 LAUNDRY TECH: 07/29/18 1324 ADM IN [facility] [address] [place] [id number]
--- NOTE | ~2018-07-21 | PN ---
PATIENT:RIKKI SUTTON MEDICAL RECORD: [id number] LOCATION:[facility] [place] ADMISSION DATE: 07/21/18 PROGRESS NOTE DATE OF SERVICE: 08/07/2018 SUBJECTIVE: The patient's case was discussed with staff. He has no new complaint. OBJECTIVE: The patient is in good behavioral control with limited insight about his condition. He generally tolerates his medicines well. ASSESSMENT: No change in diagnoses. PLAN: Current medicines and therapies have been reviewed and will be maintained. Long-term prognosis is guarded. I anticipate he can be transitioned out of the hospital Thursday if this level of improvement continues. TRANSINT:[id number] Voice Confirmation ID: [id number] DOCUMENT ID: [id number] TAMIKO VALENZUELA MD at 1130 CC: [id number] DICTATION DATE: 08/07/18 1001 STAFF AIR DEFENSE OFFICER: 08/07/18 1152 ADM IN [facility] [address] [place] [address]
--- NOTE | ~2018-07-21 | PN ---
PATIENT:RIKKI SUTTON MEDICAL RECORD: [id number] LOCATION:[facility] [place] ADMISSION DATE: 07/21/18 PROGRESS NOTE DATE OF SERVICE: 08/04/2018 SUBJECTIVE: The patient's case was discussed with staff. He has no new complaint. OBJECTIVE: The patient denies intent to harm himself or others. He is severely impaired cognitively. ASSESSMENT: No change in diagnoses. PLAN: Current medicines have been reviewed. His long-term prognosis is guarded. Supportive and educational interventions were made. I anticipate he could be transitioned back to the assisted living center soon. TRANSINT:[id number] Voice Confirmation ID: [id number] DOCUMENT ID: [id number] TAMIKO VALENZUELA MD at 1229 CC: [id number] DICTATION DATE: 08/04/18917 LPN RN: 08/04/18 1137 ADM IN [place] [address] [place] [id number]
--- NOTE | ~2018-07-21 | PN ---
PATIENT:RIKKI SUTTON MEDICAL RECORD: [id number] LOCATION:[facility] [place] ADMISSION DATE: 07/21/18 PROGRESS NOTE DATE OF SERVICE: 08/06/2018 SUBJECTIVE: The patient's case was discussed with staff. He has no new complaint. OBJECTIVE: The patient denies intent to harm himself or others. He is only partially oriented. He has limited insight about his situation. ASSESSMENT: No change in diagnoses. PLAN: Brief supportive and educational interventions were made. Long-term prognosis is guarded. I anticipate the patient can be transitioned out of the hospital soon. Placement is being considered at the [facility] [place]. TRANSINT:[id number] Voice Confirmation ID: [id number] DOCUMENT ID: [id number] TAMIKO VALENZUELA MD at 0846 CC: [id number] DICTATION DATE: 08/06/18 1303 INSULATION POWER UNIT TENDER: 08/06/18 1639 ADM IN [facility] [address] [place] [address]
--- NOTE | ~2018-07-21 | PN ---
PATIENT:RIKKI SUTTON MEDICAL RECORD: [id number] LOCATION:[facility] [place] ADMISSION DATE: 07/21/18 PROGRESS NOTE DATE OF SERVICE: 08/03/2018 SUBJECTIVE: The patient's case was discussed with staff. He has no new complaint. OBJECTIVE: The patient denies intent to harm himself or others. He generally tolerates his medicines well. He has limited insight about his situation. He has not been aggressive today. ASSESSMENT: No change in diagnoses. PLAN: The assisted living center is not going to accept him back until the son completes some paperwork. As I understand that they want him to sign an agreement that he can be discharged if he becomes aggressive again. I am not really sure why this is a requirement since the assisted living center can discharge anyone they wish for aggressive behavior, but that is the situation. He has nowhere else to go. No other arrangements have been made and no other arrangements could be made quickly. I have discussed this with the patient. He has no problem with it, he is fine sitting here, but he is in need of discharge and hopefully this can be arranged between the assisted living center and the family today. TRANSINT:[id number] Voice Confirmation ID: [id number] DOCUMENT ID: [id number] TAMIKO VALENZUELA MD at 0910 CC: [id number] DICTATION DATE: 08/03/18 1010 SAND ANALYST: 08/03/18 1138 ADM IN [place] [address] [place] [address]
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
--- NOTE | ~2018-07-21 | PN ---
PATIENT:RIKKI SUTTON MEDICAL RECORD: [id number] LOCATION:[facility] ADMISSION DATE: 07/21/18 PROGRESS NOTE DATE OF SERVICE: 08/08/2018 SUBJECTIVE: The patient's case was discussed with staff. He has no new complaint. OBJECTIVE: The patient denies intent to harm himself or others. He tolerates his medicines well. He is in good behavioral control. ASSESSMENT: No change in diagnoses. PLAN: Current medicines have been reviewed and will be maintained. He will be transitioned out of the hospital tomorrow. His long-term prognosis is guarded. TRANSINT:[id number] Voice Confirmation ID: [id number] DOCUMENT ID: [id number] TAMIKO VALENZUELA MD at 0941 CC: [id number] DICTATION DATE: 08/08/18 1132 VIDEO TAPE EDITOR: 08/08/[address] [facility] [address] [place] [address]
--- NOTE | ~2018-07-21 | PN ---
PATIENT:RIKKI SUTTON MEDICAL RECORD: [id number] LOCATION:[facility] ADMISSION DATE: 07/21/18 PROGRESS NOTE DATE OF SERVICE: 07/24/2018 SUBJECTIVE: The patient's case was discussed with staff. He has no new complaint. OBJECTIVE: The patient ate well yesterday. He slept well last night. He is taking his medications. He has not been aggressive. He does require almost constant redirecting and queuing and he is obviously escalating on a regular basis, but the constant supervision is preventing him from becoming aggressive because the staff are there to address his needs and redirect him. I am concerned about how unsteady he is on his feet. I did discontinue his Seroquel yesterday and we will observe any changes in his movement and will ask physical therapy to work with him. TRANSINT:[id number] Voice Confirmation ID: [id number] DOCUMENT ID: [id number] TAMIKO VALENZUELA MD at 0924 CC: [id number] DICTATION DATE: 07/24/18 1104 WINDOW SHADE ESTIMATOR: 07/24/18 1147 ADM IN [facility] [address] [place] [address]
--- NOTE | ~2018-07-21 | PN ---
PATIENT:RIKKI SUTTON MEDICAL RECORD: [id number] LOCATION:[facility] ADMISSION DATE: 07/21/18 PROGRESS NOTE DATE OF SERVICE: 07/27/2018 SUBJECTIVE: The patient's case was discussed with staff. He has no new complaint. OBJECTIVE: The patient denies intent to harm himself or others. He generally tolerates his medicines well. He has been started on a low dose of Trilafon to assist with his thought disorganization and so far it seems to be helpful. ASSESSMENT: No change in diagnoses. PLAN: I am going to taper the patient's dose of Klonopin slightly. He is a little unsteady and I fear it may be related to the medications. TRANSINT:[id number] Voice Confirmation ID: [id number] DOCUMENT ID: [id number] TAMIKO VALENZUELA MD at 1128 CC: [id number] DICTATION DATE: 07/27/18 1517 ARGON TESTER: 07/27/18 1645 ADM IN [place] [address] [place] [address]
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
--- NOTE | ~2018-07-21 | PN ---
PATIENT:RIKKI SUTTON MEDICAL RECORD: [id number] LOCATION:[facility] ADMISSION DATE: 07/21/18 PROGRESS NOTE DATE OF SERVICE: 07/31/2018 SUBJECTIVE: The patient's case was discussed with staff. He has no new complaint. OBJECTIVE: The patient denies intent to harm himself or others. He generally tolerates his medicines well. He is quite confused, but has not been aggressive today. ASSESSMENT: No change in diagnoses. PLAN: If this level of improvement continues, I am going to discharge him back to the assisted living center on Thursday. TRANSINT:[id number] Voice Confirmation ID: [id number] DOCUMENT ID: [id number] TAMIKO VALENZUELA MD at 1130 CC: [id number] DICTATION DATE: 07/31/18 1241 BUNCH MAKER HAND: 07/31/18 1720 ADM IN [place] [id number] [place] [id number]
[~2018-07-21 18:05] MED LIST changes: +Aricept PO; +KLONOPIN0.5 MG PO; +SEROQUEL25 MG PO
[2018-07-21 19:55] VITALS: BP 158/67
[2018-07-22 05:11] VITALS: BP 134/68; BMI 18.8
[2018-07-22 05:37] LABS: BASOPHILS 0.4 % (0-2); HEMATOCRIT 39.5 % (42.0-54.0); IMMATURE GRANULOCYTES 0.1 % (0-5); LYMPHOCYTES 25.5 % (15-50); MCH 31.1 pg (26.0-34.0); MCHC 32.9 g/dL (31.0-37.0); MCV 94.5 fL (80.0-100.0); MEAN PLATELET VOLUME 9.7 fL (7.4-10.4); MONOCYTES 8.4 % (2-11); NEUTROPHILS 63.6 % (40-80); RBC 4.18 10x6/uL (4.20-6.10); RDW 13.9 % (11.5-14.5); WBC 7.1 10x3/uL (4.8-10.8)
[2018-07-22] MEDS ORDERED: VITAMIN D5000 UNIT PO (05:38)
[2018-07-22] MEDS ORDERED: VITAMIN D10000 UNI1 PO (05:40)
[2018-07-22 05:50] LABS: PLATELET COUNT 141 10x3/uL (130-400)
[2018-07-22 06:18] LABS: ANION GAP 10.9 mmol/L (8-16); BILIRUBIN - TOTAL 0.51 mg/dL (0.2-1.3); CALCIUM 8.5 mg/dL (8.5-10.1); CARBON DIOXIDE 29.2 mmol/L (21.0-32.0); CREATININE - SERUM 1.2 mg/dL (0.6-1.3); LDL-HDL RATIO 1.8 ratio (1.5-3.5); POTASSIUM - SERUM 4.1 mmol/L (3.5-5.1); THYROID STIMULATING HORMONE 1.38 uIU/mL (0.36-3.74)
[2018-07-22 08:44] VITALS: BMI 25.7
[2018-07-22 09:17] VITALS: BP 127/71
[2018-07-22 13:38] VITALS: Wt 83.5 kg
[2018-07-22 19:25] VITALS: BP 138/51
[2018-07-23] VITALS (7 sets, daily range): BP systolic 132–152; BP diastolic 70–80
[2018-07-23 07:34] LABS: RAPID PLASMA REAGIN Non Reactive (Non Reactive)
[2018-07-23 08:21] LABS: FOLATE (FOLIC ACID) - SERUM 7.3 ng/mL (>3.0)
[2018-07-24 08:00] VITALS: BP 116/63
[2018-07-24 19:39] VITALS: BP 179/79
[2018-07-25 07:00] VITALS: BP 120/77
[2018-07-25 20:41] VITALS: BP 151/62
[2018-07-26 08:00] VITALS: BP 123/66
[2018-07-26 19:54] VITALS: BP 151/82
[2018-07-27 08:00] VITALS: BP 127/64
[2018-07-27 20:04] VITALS: BP 132/60
[2018-07-28 08:00] VITALS: BP 149/80
[2018-07-28 19:36] VITALS: BP 142/82
[2018-07-29 09:50] VITALS: BP 119/62
[2018-07-29 20:00] VITALS: BP 124/65
[2018-07-30 09:43] VITALS: BP 124/61
[2018-07-30 10:02] VITALS: BP 124/61
[2018-07-30 11:16] VITALS: BP 124/61
[2018-07-30 20:08] VITALS: BP 146/64
[2018-07-31 08:30] VITALS: BP 110/55
[2018-07-31 19:49] VITALS: BP 129/63
[2018-08-01 07:00] VITALS: BP 109/65
[2018-08-01] MEDS ORDERED: Aricept PO (11:33)
[2018-08-01] MEDS ORDERED: PERPHENAZINE2 MG PO (11:34)
[2018-08-01 20:27] VITALS: BP 127/68
[2018-08-02 07:00] VITALS: BP 147/63
[2018-08-02 23:50] VITALS: BP 133/63
[2018-08-03 08:00] VITALS: BP 148/69
[2018-08-03 19:45] VITALS: BP 128/63
[2018-08-04 10:14] VITALS: BP 127/61
[2018-08-04 19:41] VITALS: BP 136/60
[2018-08-05 17:01] VITALS: BP 119/44
[2018-08-05 17:02] VITALS: BP 134/68
[2018-08-05 20:00] VITALS: BP 136/88
[2018-08-06 09:38] VITALS: BP 132/75
[2018-08-06 19:52] VITALS: BP 113/56
[2018-08-07 09:51] VITALS: BP 111/71
[2018-08-07 10:10] VITALS: BP 117/71
[2018-08-07 19:00] VITALS: BP 118/76
[2018-08-08 07:00] VITALS: BP 143/73
[2018-08-08 20:12] VITALS: BP 135/68
[2018-08-09 07:00] VITALS: BP 135/66
== END 2018-08-09 11:00 | disposition home or self-care (01) | DRG 57 ==
LOC: D.PSYCH 18:05
PROVIDERS: Psychiatry & Neurology Psychiatry
DX: G30.1 Alzheimer's disease with late onset (principal); F02.81 Dementia in other diseases classified elsewhere, unspecified severity, with behavioral disturbance; F41.9 Anxiety disorder, unspecified; E53.8 Deficiency of other specified B group vitamins; E55.9 Vitamin D deficiency, unspecified